=== PATIENT | female | born 1960 | race Caucasian/White ===

== ENCOUNTER 2024-04-02 07:29 | Day surgery (SDC) | payer MEDICAID ==
[2024-04-02] MEDS ORDERED: Propofol 200 MG/20 ML SDV ONE ×2 (08:35→10:15)
[2024-04-02] MEDS ORDERED: Midazolam 1 MG/ML 2 ML SDV ONE (08:35)
[2024-04-02] MEDS ORDERED: fentaNYL 50 MCG/ML SDV ONE (08:36)
[2024-04-02] MEDS: Lactated Ringers 1,000 ML IV SCH (08:50)
== END 2024-04-02 11:37 | disposition home or self-care (01) ==
LOC: JP.SDS 07:29
PROVIDERS: ATTEND Surgery
DX: D12.2 Benign neoplasm of ascending colon (principal); D12.3 Benign neoplasm of transverse colon; K21.9 Gastro-esophageal reflux disease without esophagitis; F32.A Depression, unspecified
CPT/HCPCS: 45380; 45385; J2250; J2704; J3010; J7120